=== PATIENT | male | born 1995 | race Caucasian/White ===

== ENCOUNTER 2024-04-02 14:16 | Outpatient (CLI) | payer OTHER, SELFPAY ==
--- NOTE | 2024-04-02 14:37 | MR_ITS ---
WS: [id number] MRI LUMBAR SPINE NONCONTRAST HISTORY: LBP COMPARISON: None available. TECHNIQUE: Sagittal and axial multisequence imaging is submitted. Very slight retrolisthesis of L2. No acute fractures in the lumbar vertebral bodies. Normal lumbar alignment with no compression fractures or marrow edema. Mild disc space narrowing and desiccation at L4-5 and L5-S1. Conus terminates normally at L1-2 disc level. L1-L2: Normal. L2-L3: Mild annular disc bulging with mild ligamentum flavum and facet arthritis. No stenosis. L3-L4: Mild annular disc bulging with ligamentum flavum and facet arthritis. Mild central and subarti cular recess encroachment and mild foraminal stenosis. L4-L5: Diffuse annular disc bulge with a moderate size central disc protrusion. Disc protrusion exten ds into the LEFT foramen with annular fissure. Disc encroaches into the subarticular recesses contact ing the traversing L5 nerve roots. Mild central with bilateral subarticular recess and foraminal sten osis. Moderate LEFT and mild RIGHT foraminal stenosis. There is additional contact on the exiting L4 nerve roots, LEFT greater than RIGHT. L5-S1: Mild annular disc bulge with a central disc protrusion. Very minimal encroachment upon the RIG HT S1 nerve root. Mild bilateral foraminal stenosis with disc contacting the exiting L5 nerve roots. Paravertebral soft tissues are normal. MR/MR lumbar spine wo con* [id number] IMPRESSION: 1. L4-5: Mild annular disc bulge with a central disc protrusion which extends into the LEFT foramen with annular fissure. Deformity of the ventral thecal sac . Mild central with bilateral subarticular recess and foraminal stenosis. Moder ate LEFT and mild RIGHT foraminal stenosis. There is disc contact on the exitin g L4 nerve roots, LEFT greater than RIGHT. 2. L5-S1: Central disc protrusion. Mild encroachment upon the RIGHT S1 nerve r oot. Mild bilateral foraminal stenosis with disc contacting the exiting L5 nerv e roots. 3. L3-4: Mild central, bilateral subarticular recess and foraminal stenosis.
== END 2024-04-02 14:17 | disposition home or self-care (01) ==
LOC: RAD 14:21
PROVIDERS: PCP Family Medicine; Visit Provider Family Medicine
DX: M51.360 Other intervertebral disc degeneration, lumbar region with discogenic back pain only (principal); M51.26 Other intervertebral disc displacement, lumbar region; M99.63 Osseous and subluxation stenosis of intervertebral foramina of lumbar region
CPT/HCPCS: 72148

== ENCOUNTER → 2025-01-08 08:19 | Outpatient (BNVA) | payer OTHER, SELFPAY | PROVIDERS: PCP Family Medicine Geriatric Medicine; Visit Provider Physician Assistant | DX: S52.502A Unspecified fracture of the lower end of left radius, initial encounter for closed fracture (principal); S52.614A Nondisplaced fracture of right ulna styloid process, initial encounter for closed fracture; W13.2XXA Fall from, out of or through roof, initial encounter | CPT/HCPCS: 73110 ==

== ENCOUNTER 2025-01-08 10:11 | Outpatient (CLI) | payer OTHER, SELFPAY | END 2025-01-08 10:12 | disposition home or self-care (01) | LOC: SPT 10:11 | PROVIDERS: PCP Family Medicine Geriatric Medicine; Visit Provider Physician Assistant | DX: Z46.89 Encounter for fitting and adjustment of other specified devices (principal); S62.102D Fracture of unspecified carpal bone, left wrist, subsequent encounter for fracture with routine healing; X58.XXXD Exposure to other specified factors, subsequent encounter | CPT/HCPCS: L3982 ==

== ENCOUNTER → 2025-02-11 11:02 | Outpatient (BNVA) | payer OTHER, SELFPAY | PROVIDERS: PCP Family Medicine Geriatric Medicine; Visit Provider Surgery | DX: D17.1 Benign lipomatous neoplasm of skin and subcutaneous tissue of trunk (principal); R03.0 Elevated blood-pressure reading, without diagnosis of hypertension | CPT/HCPCS: 99204 ==

== ENCOUNTER 2025-02-23 07:19 | Day surgery (SDC) | payer OTHER, SELFPAY ==
[2025-02-23] VITALS (7 sets, daily range): BP systolic 97–120; BP diastolic 54–79; PULSE 62–83; RESP 16–18; TEMP 36.5–36.9; O2SAT 97–100; BMI 21.6
--- NOTE | 2025-02-23 09:00 | P.HPUD_ITS ---
Surgery/Procedure H&P Update DATE OF PROCEDURE: February 23, 2025 DATE H&P PERFORMED: 02/11/25 H&P UPDATE INFORMATION: I have reviewed H&P completed within last 30 days, I have examined patient prior to procedure, No changes to prior documentation, H&P is in [facility] EMR on date indicated and Risks and benefits of the procedure reviewed PLANNED PROCEDURE: Operation Date: 02/23/25 09:05 Proposed Procedures p Excision Soft Tissue Lesion Lower Back 20784 D17.1(Not Applicable) - Yovany Lamb MD
[2025-02-23] MEDS: ceFAZolin 2,000 mg SDV 2000 MG IVP (10:16)
--- NOTE | 2025-02-23 11:09 | PM.OP ---
Operative Report Date of procedure: February 23, 2025 Pre-op diagnosis: Subcutaneous mass of the lower back Post-op diagnosis: Subfascial mass of the lower back Post-op findings: There was a 3.5 cm x 1 cm x 1 cm subfascial mass of that right lower back. Procedure done: Excision of subfascial mass of the right lower back Specimens removed/disposition: Superficial lesion on the right lower back Surgeon: Yovany Lamb MD [place] Aide: KAREN OR STaff Estimated blood loss: 5 Brief History: 29-year-old male who was referred to me for lump in the right lower back, after discussion risk-benefit is glucide to proceed to the OR for excision. Preoperative ultrasound evidence of a possible lipoma. Procedure: Patient was brought into the OR, monitored anesthesia care was initiated, he was placed in the left lateral decubitus position. The right lower back was prepped and draped in usual sterile fashion. Timeout was conducted. The area of the lesion was marked in the preop area. I made 3.5 cm incision on the area of the lesion, I deepen incision to subcutaneous tissue, the muscle is noted to be on the soft fascial level. I opened the muscular fascia with electrocautery and was able to identified a fatty lesion in the subfascial plane. I circumferentially dissected the lesion and then transected at the base using electrocautery. The lesion was passed to scrub table to be sent to pathology. Hemostasis was achieved. No residual tissue was noted. The wound was closed in layers using #3 Vicryl for the fascial plane, #3 Vicryl for the subcutaneous tissue and #4 Monocryl for the skin and Dermabond was applied. At the end of the procedure all counts were correct, the patient tolerated well the procedure was transferred to PACU in stable condition.
--- NOTE | 2025-02-23 11:50 | ANE.PACU2 ---
Inpatient post-anesthesia follow up: Airway intact: Yes Vital signs: Temperature 98.1 F Pulse Rate 83 Respiratory Rate 16 Blood Pressure 114/55 Pulse Oximetry 98 Oxygen Delivery Me thod Room Air Oxygen Flow Rate Fraction of Inspir ed Oxygen Hydration adequate: Yes Nausea and vomiting: No Pain level: 1 Mental status: Baseline
== END 2025-02-23 11:50 | disposition home or self-care (01) ==
PROVIDERS: PCP Family Medicine Geriatric Medicine; Visit Provider Surgery
PROC: (CPT 21931; principal; 2025-02-23 08:55)
DX: R22.2 Localized swelling, mass and lump, trunk (principal)
CPT/HCPCS: 21931; 88307; J0690; J2250; J2704; J3010; J7030